=== PATIENT | female | born 1970 | race Caucasian/White ===

== ENCOUNTER 2019-07-26 12:21 | Emergency (ER) | payer BC ==
[2019-07-26 12:47] VITALS: BP 115/78; PULSE 87; TEMP 98.6; BMI 23.8
--- NOTE | 2019-07-26 13:06 | PDOC ---
History of Present Illness - General Chief Complaint: Psychiatric Stated Complaint: FEELING SHAKEY PSYCHIATRIST TOLD HER TO COME IN Time Seen by Provider: 07/26/19 13:04 - History of Present Illness Initial Comments: 07/26/19 13:43 Chief complaint: "Shakiness" HPI: Severe depression, anxiety, hospitalized for 8 days in May at [facility], begun at that time on lithium in addition to her antidepressants and other augmentation drugs. She seemed to improve initially, but for the past few days has been feeling more depressed and anxious , and began lowering her lithium medication. She cut it down from 1200-9 100 to 600 mg, but in spite of this she feels worse. Denies any suicidal thoughts or inclinations. She has never tried to hurt herself or others. She is prescribed Klonopin for anxiety, but has not been using it. Her psychiatrist is on medication until Monday. Review of systems: Denies URI symptoms, sore throat, cough, fever/chills, chest pain, shortness of breath, abdominal pain, nausea, vomiting, diarrhea, visual or focal neurologic symptoms, unsteadiness of gait, urinary tract symptoms, vaginal bleeding or discharge. She does admit having a poor appetite and not sleeping well. Past medical history: Denies any other medical or surgical illnesses. Social history: Lives at home with her and her 16-year-old son. Recently returned from [place] visiting her sister. Her family is generally supportive, but her does get impatient at times. There have been no significant triggers lately that have aggravated her depression. She does not drink or smoke, or use any illicit drugs Family history: Reviewed and noncontributory Physical exam: Alert oriented well-developed well-nourished moderately anxious, occasionally tearful, but appears coherent and insightful. Afebrile, vital signs normal PERRLA 4 mm, fundi benign, ENT clear Neck supple without bruit mass or nodes Chest clear CV regular without murmur rub or gallop Abdomen soft nontender without mass organomegaly Neurological C2 to 12 intact. Strength full and symmetric. No focal sensorimotor deficits. Gait stable and unimpaired. Cerebellar function intact. DTRs 2+ symmetric, Babinski is down. No hyperreflexia. Extremities no CCE Skin clear, no rash, adequate turgor and wet mucous membranes Impression: Exacerbation of chronic depression, possibly related to the stress of the holidays, possibly worsened by self lowering her lithium dose. No suicidal or homicidal ideations, without prior suicide attempts, and appears to understand her condition and to be reliable Plan: To gradually increase her lithium dose to the prescribed dosage, use Klonopin as directed for anxiety, and consult her psychiatrist upon her return from vacation on Monday. Return to emergency room immediately if condition worsens, especially if there are suicidal ideations. Past History - Past Medical History Allergies/Adverse Reactions: Allergies Allergy/AdvReac Type Severity Reaction Status Date / Time No Known Allergies Allergy Unverified 07/26/19 12:25 Home Medications: Ambulatory Orders Bupropion HCl [Wellbutrin Xl] 450 mg PO DAILY 07/26/19 Fluoxetine HCl [Prozac] 60 mg PO HS 07/26/19 Lamotrigine [Lamictal -] 100 mg PO DAILY 07/26/19 [place] Carbonate [Lithobid] 300 mg PO DAILY 07/26/19 [place] Carbonate [Lithobid] 900 mg PO HS 07/26/19 COPD: Yes Psychiatric Problems: Yes (DEPRESSION ANXIETY) - Psycho Social/Smoking Cessation Hx Smoking History: Former smoker Have you smoked in the past 12 months: No If you are a former smoker, when did you quit?: OVER 20 YEARS Information on smoking cessation initiated: No Hx Alcohol Use: Yes (SOCIAL) Drug/Substance Use Hx: No *Physical Exam - Vital Signs Last Vital Signs Temp Pulse Resp BP Pulse Ox 98.6 F 87 18 115/78 97 07/26/19 12:24 07/26/19 12:24 07/26/19 12:24 07/26/19 12:24 07/26/19 12:24 Discharge - Discharge Information Problems reviewed: Yes Clinical Impression/Diagnosis: Anxiety Condition: Stable Disposition: HOME - Admission No - Follow up/Referral - Patient Discharge Instructions Patient Printed Discharge Instructions: DI for Depression -- Adult, DI for Anxiety -- Adult Additional Instructions: Take your medication as directed. Gradually resume your lithium. Take Klonopin 2 or 3 times daily until the anxiety improves Return to ER immediately if you are worse, especially if you have thoughts of hurting yourself or others. Otherwise see your psychiatrist immediately when she returns. - Post Discharge Activity
== END 2019-07-26 13:31 | disposition home or self-care (01) ==
LOC: FER 12:21
DX: F41.9 Anxiety disorder, unspecified (principal); F32.9 Major depressive disorder, single episode, unspecified; J44.9 Chronic obstructive pulmonary disease, unspecified
CPT/HCPCS: 99281-25

== ENCOUNTER 2024-01-12 08:51 | Emergency (ER) | payer BC ==
[2024-01-12 09:12] VITALS: BP 114/76; PULSE 83; RESP 16; TEMP 97.6; BMI 25.0
[2024-01-12] MEDS ORDERED: ACETAMINOPHEN 500 MG TABLET (FP) ONE (09:30)
[2024-01-12] MEDS ORDERED: LIDOCAINE 5% TOPICAL PATCH ONE (09:31)
[2024-01-12] MEDS: ACETAMINOPHEN 500 MG TABLET (FP) PO ONE (09:34)
[2024-01-12] MEDS: LIDOCAINE 5% TOPICAL PATCH TP ONE (09:36)
[2024-01-12 10:22] LABS: HEMOGLOBIN 11.4 G/dL (10.7-15.3); MCH 29.2 pg (25.7-33.7); MCHC 31.7 g/dl (32.0-36.0); MEAN CELL VOLUME 92.1 fl (80-96); MEAN PLT VOLUME 8.1 fl (7.5-11.1); PLATELET COUNT 301.1 10^3/uL (134-434); RBC 3.91 10^6/uL (3.60-5.2); RDW 15.1 % (11.6-15.6); WHITE BLOOD COUNT 7.9 10^3/uL (4.0-10.8)
[2024-01-12 10:30] LABS: ALBUMIN 3.9 g/dl (3.4-5.0); BILIRUBIN,TOTAL 0.4 mg/dl (0.2-1); CALCIUM 9.3 mg/dl (8.5-10.1); CREATININE 0.7 mg/dl (0.6-1.3)
[2024-01-12 10:35] LABS: PLATELET ESTIMATE ADEQUATE
[2024-01-12 11:51] LABS: OPIATES, URI NEGATIVE (NEGATIVE); URINE BARBITURATES NEGATIVE (NEGATIVE)
[2024-01-12 11:52] LABS: METHADONE, UR NEGATIVE (NEGATIVE); PHENCYCLIDINE,URINE NEGATIVE (NEGATIVE); URINE BENZODIAZEPINES NEGATIVE (NEGATIVE)
[2024-01-12 11:53] LABS: COCAINE, UR POSITIVE (NEGATIVE); URINE AMPHETAMINES NEGATIVE (NEGATIVE)
[2024-01-12] MEDS ORDERED: LIDOCAINE PATCH REMOVAL MC SCH (22:00)
== END 2024-01-12 11:00 | disposition left against medical advice (07) ==
LOC: FER 08:51
DX: M79.602 Pain in left arm (principal); M54.50 Low back pain, unspecified; G89.29 Other chronic pain; M54.2 Cervicalgia
CPT/HCPCS: 36415; 80053; 80307; 84484; 85027; 93005; 99284-25